=== PATIENT | male | born 1940 | race Two or more races ===

== ENCOUNTER 2021-01-08 10:45 | Emergency (ER) | payer MEDICARE, OTHER ==
[~2021-01-08] VITALS: Ht 172.7 cm; Wt 84.4 kg
--- NOTE | 2021-01-08 11:40 | NUR ---
PT C/O BILATERAL KNEE PAIN FROM A GROUND LEVEL FALL THAT OCCURED YESTERDAY. VITAL SIGNS WITHIN NORMAL LIMITS. PT IS A&OX4 AND STABLE. WILL CONTINUE TO MONITOR.
--- NOTE | 2021-01-08 12:04 | NUR ---
[employer] AT BEDSIDE
--- NOTE | 2021-01-08 12:06 | NUR ---
X RAY AT BESIDE
[2021-01-08 12:44] VITALS: BP 123/74
--- NOTE | 2021-01-08 14:22 | NUR ---
PT WAS GIVEN AND UNDERSTOOD DISCHARGE INSTRUCTIONS AND REFFERAL. VITAL SIGNS WITHIN NORMAL LIMITS. PT WAS TAKEN VIA WHEELCHAIR TO HIS TRANSPORTATION.
== END 2021-01-08 14:23 | disposition home or self-care (01) ==
LOC: ER 10:56 → EDSEX 10:56 → ER 14:23
DX: M25.561 Pain in right knee (principal); M25.562 Pain in left knee; J45.909 Unspecified asthma, uncomplicated; Z90.49 Acquired absence of other specified parts of digestive tract; Z98.890 Other specified postprocedural states; W18.39XA Other fall on same level, initial encounter; Y93.89 Activity, other specified; Y92.89 Other specified places as the place of occurrence of the external cause; Y99.8 Other external cause status
CPT/HCPCS: 73564-TC